=== PATIENT | female | born 1980 | race African-American/Black ===

== ENCOUNTER → 2024-12-04 | Outpatient (REF) | payer OTHER ==
[2024-12-04 15:57] LABS: FREE T4 1.09 NG/DL (0.89-1.76); THYROID PEROXIDASE ANTIBODY < 28.0 U/ML (<60.0); THYROID STIMULATING HORMONE 2.028 uIU/ML (0.55-4.78)
[2024-12-04 16:00] LABS: THYROGLOBULIN ANTIBODY < 15.0 U/ML (<60.0)
[2024-12-04 16:03] LABS: BASO % 0.6 % (0.0-1.0); EOS % 0.8 % (0.0-3.0); HEMATOCRIT 42.4 % (36.0-47.0); HEMOGLOBIN 13.4 g/dl (12.0-15.5); LYMPH # 1.7 10^3/uL (1.5-5.0); LYMPH % 33.8 % (24.0-44.0); MEAN CORPUSCULAR HEMOGLOBIN 27.7 pg (27.0-33.0); MEAN CORPUSCULAR HGB CONC 31.6 g/dl (32.0-36.5); MEAN CORPUSCULAR VOLUME 87.8 fl (80.0-96.0); MONO # 0.5 10^3/uL (0.0-0.8); MONO % 10.2 % (2.0-8.0); NEUTROPHILS # 2.6 10^3/uL (1.5-8.5); NEUTROPHILS % 54.2 % (36.0-66.0); PLATELET COUNT, AUTOMATED 318 10^3/uL (150-450); RED BLOOD COUNT 4.83 10^6/uL (4.00-5.40); WHITE BLOOD COUNT 4.9 10^3/uL (4.0-10.0)
== END ==
LOC: M LAB REF 12:33
PROVIDERS: ATTEND Student in an Organized Health Care Education/Training Program
DX: R30.0 Dysuria (principal); R22.1 Localized swelling, mass and lump, neck

== ENCOUNTER → 2025-01-07 | Outpatient (CLI) | payer OTHER | LOC: M RAD 07:56 | PROVIDERS: ATTEND Student in an Organized Health Care Education/Training Program | DX: R22.1 Localized swelling, mass and lump, neck (principal); R10.10 Upper abdominal pain, unspecified ==

== ENCOUNTER → 2025-03-30 | Outpatient (REF) | payer OTHER | LOC: M LAB REF 11:48 | PROVIDERS: ATTEND Student in an Organized Health Care Education/Training Program | DX: J02.9 Acute pharyngitis, unspecified (principal) ==

== ENCOUNTER → 2025-04-01 | Outpatient (CLI) | payer OTHER ==
[~2025-04-01] MED LIST: LIDOCAINE 1% MDV 20 ML VIAL As Ordered ONE
[2025-04-01 14:10] VITALS: BP 120/56; TEMP 97.3; O2SAT 100
== END ==
LOC: M IRPRO 14:00
PROVIDERS: ATTEND Otolaryngology
DX: E04.2 Nontoxic multinodular goiter (principal)

== ENCOUNTER → 2025-04-26 | Outpatient (CLI) | payer OTHER | LOC: M SOG 07:05 | PROVIDERS: ATTEND Neuromusculoskeletal Medicine, Sports Medicine | DX: Z53.9 Procedure and treatment not carried out, unspecified reason (principal) ==

== ENCOUNTER → 2025-05-14 | Outpatient (CLI) | payer OTHER | LOC: M SOG 13:59 | PROVIDERS: ATTEND Neuromusculoskeletal Medicine, Sports Medicine | DX: M25.532 Pain in left wrist (principal); M25.531 Pain in right wrist ==

== ENCOUNTER → 2025-06-07 | Outpatient (CLI) | payer OTHER | LOC: M RAD 12:21 | PROVIDERS: ATTEND Student in an Organized Health Care Education/Training Program | DX: G89.29 Other chronic pain (principal); M25.561 Pain in right knee; M25.562 Pain in left knee ==